=== PATIENT | female | born 1965 | race American Indian/Alaskan Native ===

== ENCOUNTER 2016-09-02 13:32 | Outpatient (CLI) | payer BC ==
--- NOTE | 2016-09-03 11:08 | Mammography Report ---
BILATERAL DIGITAL DIAGNOSTIC MAMMOGRAM : 09/02/16 13:32:00 CLINICAL: Recalled for bilateral asymmetries. COMPARISON:07/30/16 screening. FINDINGS: Lateralmedial and spot compression views of the right breast were performed. Satisfactory effacement of the previously described asymmetry on the spot view. The lateral view is negative.No mass, architectural distortion or suspicious calcifications. Lateralmedial and spot compression views of the left breast were performed. Satisfactory effacement of asymmetries on the CC spots. A lateral asymmetry appears to be a benign intraparenchymal lymph node with central fat. An inferior asymmetry on the lateral view is not identified on the previous MLO view. I did not recognize this with the patient was still in the department. Reportedly, a spot compression view of this asymmetry was performed. IMPRESSION: Negative right breast. However, incomplete imaging of the left breast. Recommend return for an additional lateralmedial spot compression view and left breast ultrasound if needed. BI-RADS CATEGORY: 0--Needs Additional Imaging ACR BI-RADS MAMMOGRAPHIC CODES: 0 = Needs additional imaging evaluation; 1 = Negative; 2 = Benign; 3 = Probably benign; 4 = Suspicious; 5 = Malignant; 6 = Known biopsy-proven malignancy COMMENT: 1. Dense breast tissue, i.e., adenosis, fibrocystic changes, etc., may obscure an underlying neoplasm. 2. Approximately 10% of cancers are not detected with mammography. 3. A negative mammography report should not delay biopsy if a clinically suspicious mass is present. COMMENT: Patient follow-up letters are generated by our [employer] application.
== END 2016-09-02 13:33 | disposition home or self-care (01) ==
LOC: MAMMO 13:32
PROVIDERS: ATTEND Obstetrics & Gynecology
DX: R92.8 Other abnormal and inconclusive findings on diagnostic imaging of breast (principal)
CPT/HCPCS: 77066; G0204

== ENCOUNTER 2017-09-10 09:59 | Outpatient (CLI) | payer BC ==
--- NOTE | 2017-09-10 13:10 | Mammography Report ---
BILATERAL DIGITAL SCREENING MAMMOGRAM with CAD: 09/10/17 09:59:00 CLINICAL: Routine screening. COMPARISON:09/02/16 FINDINGS: The breasts are heterogeneously dense, which may obscure small masses. No mass, architectural distortion or suspicious calcifications. IMPRESSION: No mammographic evidence of malignancy. BI-RADS CATEGORY: 1 - - Negative RECOMMENDATION: Routine mammographic screening in one year. COMMENT: Patient follow-up letters are generated by our [employer] application.
== END 2017-09-10 10:00 | disposition home or self-care (01) ==
LOC: MAMMO 09:59
PROVIDERS: ATTEND Obstetrics & Gynecology
DX: Z12.31 Encounter for screening mammogram for malignant neoplasm of breast (principal)
CPT/HCPCS: 77067